=== PATIENT | female | born 1995 | race African-American/Black ===

== ENCOUNTER → 2019-11-23 | Emergency (ER) | payer OTHER ==
[~2019-11-23] VITALS: Ht 162.6 cm; Wt 98.5 kg
[~2019-11-23] MED LIST: IBUPROFEN 800 MG TAB PO ONE
[2019-11-23 14:39] VITALS: BP 119/82
== END | disposition home or self-care (01) ==
LOC: ER 14:18
DX: J02.9 Acute pharyngitis, unspecified (principal)
CPT/HCPCS: 87070; 87880

== ENCOUNTER 2020-01-17 04:48 | Emergency (ER) | payer OTHER ==
[~2020-01-17] VITALS: Ht 165.1 cm; Wt 95.3 kg
[2020-01-17 05:34] VITALS: BP 116/81
[2020-01-17] MEDS ORDERED: KETOROLAC TROMETH 60MG/2ML VIAL IM ONE (06:00)
[2020-01-17] MEDS ORDERED: methylPREDNISolone SOD SUCC 125 MG/2 ML VL IM ONE (06:00)
== END 2020-01-17 06:16 | disposition home or self-care (01) ==
LOC: ER 04:48
DX: J32.9 Chronic sinusitis, unspecified (principal)
CPT/HCPCS: 96372; 99284; J1885; J2930

== ENCOUNTER 2020-06-19 18:48 | Emergency (ER) | payer OTHER ==
[~2020-06-19] VITALS: Ht 162.6 cm; Wt 91.6 kg
[2020-06-19 19:51] VITALS: BP 127/74
[2020-06-19] MEDS ORDERED: ONDANSETRON ODT 4 MG TAB PO ONE (20:00)
[2020-06-19] MEDS ORDERED: ACETAMINOPHEN 325 MG TAB PO ONE (20:00)
== END 2020-06-19 20:44 | disposition home or self-care (01) ==
LOC: ER 18:48
DX: R11.2 Nausea with vomiting, unspecified (principal); I10 Essential (primary) hypertension; Z20.828 Contact with and (suspected) exposure to other viral communicable diseases
CPT/HCPCS: 36415; 71045; 87426; 99284; Q0162

== ENCOUNTER 2021-08-04 19:32 | Emergency (ER) | payer OTHER ==
[~2021-08-04] VITALS: Ht 162.6 cm; Wt 104.3 kg
[2021-08-04 19:50] VITALS: BP 111/71
[2021-08-04 22:41] LABS: Basophils # (auto) 0 10 ^3/uL (0-0.2); Basophils % (auto) 0.3 % (0.0-2.0); Eosinophils # (auto) 0.1 10 ^3/uL (0-0.8); Eosinophils % (auto) 1.5 % (0.0-7.0); Hemoglobin 13.8 g/dL (12.2-16.2); Lymphocytes # (auto) 3.3 10 ^3/uL (0.4-5.4); Lymphocytes % (auto) 49.5 % (10.0-50.0); Mean Corpuscular Hemoglobin 30.4 pg (28.0-32.0); Mean Corpuscular Hgb Conc. 32.9 g/dL (32.0-36.0); Mean Corpuscular Volume 92.4 fL (80.0-100.0); Monocytes # (auto) 0.4 10 ^3/uL (0-1.3); Monocytes % (auto) 6.8 % (0.0-12.0); Neutrophils # (auto) 2.8 10 ^3/uL (1.6-8.6); Neutrophils % (auto) 41.9 % (37.0-80.0); Nucleated Red Blood Cells % 0.1 %; Red Blood Cells 4.54 10^6/uL (4.0-5.20); Red Cell Distribution Width 13.7 % (11.8-14.3); White Blood Cell 6.6 10^3/uL (4.4-10.8)
[2021-08-04 23:11] LABS: Potassium 4.2 mmol/L (3.5-5.1)
[2021-08-04 23:23] LABS: BUN/Creatinine Ratio 11.3; Bilirubin, Total 0.4 mg/dL (0.2-1.0); Calcium 9.1 mg/dL (8.5-10.1); Total Protein 8.3 g/dL (6.4-8.2)
[2021-08-05 04:36] LABS: Urine Bacteria FEW /hpf (None Seen); Urine Blood Negative /uL (Negative); Urine Mucus FEW (None Seen); Urine Specific Gravity 1.029 (1.001-1.035); Urine WBC 6 /hpf (0 - 5)
== END 2021-08-05 02:42 | disposition left against medical advice (07) ==
LOC: ER 19:34
DX: R10.31 Right lower quadrant pain (principal); Z53.21 Procedure and treatment not carried out due to patient leaving prior to being seen by health care provider
CPT/HCPCS: 36415; 80053; 81001; 81025; 83690; 84702; 85025; 93005

== ENCOUNTER 2025-03-29 15:20 | Emergency (ER) | payer MEDICAID, OTHER ==
[~2025-03-29] VITALS: Ht 165.1 cm; Wt 96.2 kg
--- NOTE | 2025-03-29 16:30 | ED.PDOC ---
HPI Comments This is a 29 year old female presenting to the ED with chief complaint of headache and bilateral ankle swelling. Patient reports that she was recently admitted to [facility] [place] 2 days ago, however, since discharge she has been experiencing a headache with associated bilateral ankle swelling. Patient relays that she had preeclampsia during her and has history of HTN, but is not currently on medication at this time. Patient notes she is . Patient denies any N/V, dizziness, chest pain, SOB, or syncope. 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 History Family History Family History: Family hx of Cancer, Family hx of HTN Social History Smoker: Non-Smoker Alcohol: Denies ETOH Use Drugs: Denies Drug Use Lives In: Home Constitutional: denies: chills, diaphoresis, fatigue, fever, malaise, sweats, weakness, others EENTM: denies: blurred vision, double vision, ear bleeding, ear discharge, ear drainage, ear pain, ear ringing, eye pain, eye redness, hearing loss, mouth pain, mouth swelling, nasal discharge, nose bleeding, nose congestion, nose pain, photophobia, tearing, throat pain, throat swelling, voice changes, others Respiratory: denies: cough, hemoptysis, orthopnea, SOB at rest, shortness of breath, SOB with excertion, stridor, wheezing, others Cardiovascular: reports: edema; denies: chest pain, dizzy spells, diaphoresis, Dyspnea on exertion, irregular heart beat, left arm pain, lightheadedness, palpitations, PND, syncope, others Gastrointestinal: denies: abdomen distended, abdominal pain, blood streaked bowels, constipated, diarrhea, dysphagia, difficulty swallowing, hematemesis, melena, nausea, poor appetite, poor fluid intake, rectal bleeding, rectal pain, vomiting, others Genitourinary: denies: abnormal vagina bleeding, burning, dyspareunia, dysuria, flank pain, frequency, hematuria, incontinence, pain, , vagina discharge, urgency, others Neurological: reports: headache; denies: dizziness, fainting, left sided numbness, left sided weakness, numbness, paresthesia, pre-existing deficit, right sided numbness, right sided weakness, seizure, speech problems, tingling, tremors, weakness, others Musculoskeletal: denies: back pain, gout, joint pain, joint swelling, muscle pain, muscle stiffness, neck pain, others Integumetry: denies: bruises, change in color, change in hair/nails, dryness, laceration, lesions, lumps, rash, wounds, others Allergic/Immunocompromised: denies: Difficulty Healing, Frequent Infections, Hives, Itching, others Hematologic/Lymphatic: denies: anemia, blood clots, easy bleeding, easy bruising, swollen glands, others Endocrine: denies: excessive hunger, excessive sweating, excessive thirst, excessive urination, flushing, intolerance to cold, intolerance to heat, unexplained weight gain, unexplained weight loss, others Psychiatric: denies: anxiety, bipolar disorder, depression, hopeless, panic disorder, schizophrenia, sleepless, suicidal, others All Other Systems: Reviewed and Negative Physical Exam General Appearance: No Apparent Distress, Normal HEENT: Normal ENT Inspection, Pharynx Normal, TMs Normal Neck: Full Range of Motion, Non-Tender, Normal, Normal Inspection Respiratory: Chest Non-Tender, Lungs Clear, No Accessory Muscle Use, No Respiratory Distress, Normal Breath Sounds Cardiovascular: No Edema, No JVD, No Murmur, No Gallop, Normal Peripheral Pulses, Regular Rate/Rhythm Breast Exam: Deferred Gastrointestinal: No Organomegaly, Non Tender, No Pulsatile Mass, Normal Bowel Sounds, Soft Genitalia: Deferred Pelvic: Deferred Rectal: Deferred Extremities: No calf tenderness, Normal capillary refill, Normal inspection, Normal range of motion, Non-tender, Other (Bilateral ankle edema.) Musculoskeletal : Apperance: Normal Neurologic: Alert, 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 Was a procedure done?: No CP Differential Dx Differential Diagnosis: Angina, Anxiety / Panic Attack Differential Diagnosis: HTN Essential, HTN Encephalopathy X-Ray, Labs, Meds, VS Vital Signs Date Time Temp Pulse Resp B/P (MAP) Pulse Ox O2 Delivery O2 Flow Rate FiO2 03/29/25 17:15 154/83 03/29/25 16:43 97.9 63 18 151/88 (109) 99 97.9 03/29/25 16:43 18 99 Room Air 03/29/25 15:52 98.6 55 16 151/97 (115) 99 98.6 Current Medications Medications (Trade) Dose Ordered Sig/Charmaine Route Start Time Stop Time Status Last Admin Clonidine HCl (Catapres Tablet) 0.1 mg ONCE ONCE PO 03/29/25 16:30 03/29/25 16:31 DC 03/29/25 17:15 Ketorolac Tromethamine (Toradol Injection) 30 mg ONCE ONCE IM 03/29/25 16:30 03/29/25 16:31 DC 03/29/25 17:14 Ondansetron HCl (Zofran) 4 mg ONCE ONCE IM 03/29/25 16:30 03/29/25 16:31 DC 03/29/25 17:15 X-Ray, Labs, Meds, VS Comment Imaging: X-rays and CT scans were reviewed and interpreted by this provider, imaging shows no fractures and no pathological disease. Pending radiology review. Laboratory: Labs reviewed and interpreted by this provider. No significant abnormalities noted. Patient has prior medical visits reviewed. Med reconciliation performed Vital signs reviewed Time of 1ST Reevaluation: 17:28 Reevaluation 1ST: Unchanged Patient Education/Counseling: Diagnosis, Treatment, Need For Follow Up (Follow up with PCP in next available appointment. Return to the emergency room in the next 24-48 hours if symptoms worsen.) Family Education/Counseling: No Family Present SEPSIS Sepsis Screen Date sepsis recognized/suspect: Mar 29, 2025 Time Sepsis recognized/suspect: 153 Recent Procedure: No On Antibiotic Therapy: No Respiratory Rate >20: No Heart Rate >90: No Temp<36 C (96.8 F) or >38.3 C: No SBP <90 or MAP <65 mmHG: No New Acute Mental Status Change: No Is the patient on CPAP, BIPAP,: No Vital Signs Date Time Temp Pulse Resp B/P (MAP) Pulse Ox O2 Delivery O2 Flow Rate FiO2 03/29/25 17:15 154/83 03/29/25 16:43 97.9 63 18 151/88 (109) 99 97.9 03/29/25 16:43 18 99 Room Air 03/29/25 15:52 98.6 55 16 151/97 (115) 99 98.6 Medications Medications Dose Ordered Sig/Charmaine Route Start Time Stop Time Status Last Admin Dose Admin Clonidine HCl 0.1 mg ONCE ONCE PO 03/29/25 16:30 03/29/25 16:31 DC 03/29/25 17:15 Ketorolac Tromethamine 30 mg ONCE ONCE IM 03/29/25 16:30 03/29/25 16:31 DC 03/29/25 17:14 Ondansetron HCl 4 mg ONCE ONCE IM 03/29/25 16:30 03/29/25 16:31 DC 03/29/25 17:15 Departure 1 Departure Time of Disposition: 19:30 Impression: Primary Impression: Hypertension Qualified Codes: I10 - Essential (primary) hypertension Additional Impressions: Peripheral edema Headache Qualified Codes: G44.209 - Tension-type headache, unspecified, not intra ctable Disposition: 01 HOME / SELF CARE / HOMELESS Condition: Fair Critical Care Note Critical Care Time?: No Stability Stability form required: No Heart Score Heart Score: Heart Score Response (Comments) Value History Moderate Suspicious 1 EKG Normal 0 Age <45 0 Risk Factors 1 or 2 risk factors 1 Troponin Normal limit 0 Total 2 I personally scribed for ELIZABETH ROMO ([email or web address]) on 03/29/25 at 16:30. Electronically submitted by Albert Hargrove ([email or web address]). ELIZABETH ROMO Mar 29, 2025 16:30
[2025-03-29 16:43] VITALS: BP 151/88; PULSE 63; RESP 18; TEMP 97.9; O2SAT 99
[2025-03-29] MEDS: KETOROLAC TROMETH 30 MG/ML 1ML VIAL IM ONE (17:14)
[2025-03-29] MEDS: ONDANSETRON HCL 4 MG/2 ML VIAL IM ONE (17:15)
== END 2025-03-29 20:38 | disposition home or self-care (01) ==
LOC: ER 15:20
DX: O14.95 Unspecified pre-eclampsia, complicating the puerperium (principal); O89.4 Spinal and epidural anesthesia-induced headache during the puerperium; Z98.890 Other specified postprocedural states; Z87.59 Personal history of other complications of pregnancy, childbirth and the puerperium
CPT/HCPCS: 96372; 99284; J1885; J2405